=== PATIENT | male | born 1980 | race African-American/Black ===

== ENCOUNTER 2017-05-30 15:02 | Emergency (ER) | payer OTHER ==
[~2017-05-30] VITALS: Ht 188 cm; Wt 123.5 kg
[2017-05-30] MEDS ORDERED: INDOCIN50 MG PO (18:42)
[2017-05-30] MEDS ORDERED: VALIUM5 MG PO (18:42)
[2017-05-30] MEDS ORDERED: NORCO 10/3251 TABLET PO (18:42)
[2017-05-30 19:28] VITALS: BP 179/97
== END 2017-05-30 19:41 | disposition home or self-care (01) ==
LOC: EME 15:02
DX: S16.1XXA Strain of muscle, fascia and tendon at neck level, initial encounter (principal); S29.012A Strain of muscle and tendon of back wall of thorax, initial encounter; S39.012A Strain of muscle, fascia and tendon of lower back, initial encounter; G57.01 Lesion of sciatic nerve, right lower limb; V57.5XXA Driver of pick-up truck or van injured in collision with fixed or stationary object in traffic accident, initial encounter; Y92.410 Unspecified street and highway as the place of occurrence of the external cause
CPT/HCPCS: 72040; 72070; 72100; 99281; 99284; J3010